=== PATIENT | female | born 1975 ===

== ENCOUNTER 2022-10-02 11:15 | Inpatient (IN) | payer OTHER ==
[~2022-10-02] VITALS: Ht 176.5 cm; Wt 81.6 kg
[2022-11-14] MEDS ORDERED: WELLBUTRIN XL300 MG PO (09:48)
[2022-11-14] MEDS ORDERED: CLONAZEPAM2 M1 PO (09:48)
[2022-11-14] MEDS ORDERED: EFFEXOR XR37.5 MG PO (09:49)
[2022-11-14] MEDS ORDERED: STRATTERA60 MG PO (09:49)
[2022-11-16] MEDS ORDERED: BUPROPION XL150 MG (10:20)
[2022-11-16] MEDS ORDERED: AMPHETAMINE SAL30 MG (10:21)
[2022-11-16] MEDS ORDERED: PANTOPRAZOLE SO40 MG (10:21)
[2022-11-16] MEDS ORDERED: VENLAFAXINE HCL75 M1 (10:21)
[2022-11-16] MEDS ORDERED: CLONAZEPAM0.5 MG (10:21)
[2022-11-18] MEDS ORDERED: COLACE100 MG PO (12:08)
[2022-11-18] MEDS ORDERED: TRAM1TAB98 PO (12:09)
== END 2022-11-18 12:48 | disposition home or self-care (01) | DRG 743 ==
LOC: O/R 11-16 06:53 → SURH 11-16 09:45 → OB/GYN 11-16 15:29
PROVIDERS: ADMIT Obstetrics & Gynecology; ATTEND Obstetrics & Gynecology
PROC: 0UT70ZZ Resection of Bilateral Fallopian Tubes, Open Approach (ICD-10-PCS; 2022-11-16)
PROC: 0UT10ZZ Resection of Left Ovary, Open Approach (ICD-10-PCS; 2022-11-16)
PROC: 0DNP0ZZ Release Rectum, Open Approach (ICD-10-PCS; 2022-11-16)
PROC: 0DNN0ZZ Release Sigmoid Colon, Open Approach (ICD-10-PCS; 2022-11-16)
PROC: 0DNW0ZZ Release Peritoneum, Open Approach (ICD-10-PCS; 2022-11-16)
PROC: 0UT90ZZ Resection of Uterus, Open Approach (ICD-10-PCS; principal; 2022-11-16 09:45)
DX: D25.1 Intramural leiomyoma of uterus (principal); N73.6 Female pelvic peritoneal adhesions (postinfective); Z20.822 Contact with and (suspected) exposure to COVID-19; N80.03 Adenomyosis of the uterus